=== PATIENT | male | born 1975 | race Caucasian/White ===

== ENCOUNTER 2017-08-30 11:51 | Emergency (ER) | payer SELFPAY ==
[2017-08-30 14:27] VITALS: BP 118/64
--- NOTE | 2017-08-30 14:53 | RAD ---
INDICATION: Left testicular pain COMPARISON: None TECHNIQUE: Duplex interrogation of the scrotum was performed. FINDINGS: Testicles: The testicles are at the upper range of normal in size. There is no evidence of testicular mass. There is symmetric flow on Doppler interrogation. There is no evidence of torsion.. The right testis measures 5.9 x 2.7 x 3.5 cm and the left 6.0 x 2.8 x 3.1 cm. There is symmetric flow on Doppler interrogation. Epididymides: There is a small right-sided epididymal cyst. The left epididymal tail is enlarged and hyperemic likely related to epididymitis. There is symmetric flow on Doppler interrogation. The right epididymal head measures 0.9 x 1.2 cm and the left 1.1 x 1.7 cm. Hydroceles: None. Varicoceles: None. Other: None. IMPRESSION: 1. No evidence of testicular mass or torsion. 2. Suspect left-sided epididymitis. 3. Incidental right-sided epididymal cyst.
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
--- NOTE | 2017-08-31 18:14 | UC ---
Progress - Progress Note Progress Note: UCX (-). IF WORSE ER.
== END 2017-08-30 15:20 | disposition home or self-care (01) ==
LOC: UCEAST 11:51
DX: R10.32 Left lower quadrant pain (principal); N50.812 Left testicular pain
CPT/HCPCS: 76870; 81003; 87086; 99212; G0463